=== PATIENT | male | born 1950 | race African-American/Black ===

== ENCOUNTER 2016-07-31 19:19 | Emergency (ER) | payer OTHER | END 2016-08-01 00:35 | disposition home or self-care (01) | LOC: CED 19:19 → CFTX 19:19 | DX: S33.5XXA Sprain of ligaments of lumbar spine, initial encounter (principal); S49.91XA Unspecified injury of right shoulder and upper arm, initial encounter; R06.02 Shortness of breath; F17.210 Nicotine dependence, cigarettes, uncomplicated; Z90.49 Acquired absence of other specified parts of digestive tract; V49.40XA Driver injured in collision with unspecified motor vehicles in traffic accident, initial encounter; Y92.410 Unspecified street and highway as the place of occurrence of the external cause | CPT/HCPCS: 94640; 99283 ==